=== PATIENT | female | born 1960 | race Caucasian/White ===

== ENCOUNTER 2019-05-19 17:35 | Emergency (ER) | payer BC ==
[~2019-05-19] VITALS: Ht 165.1 cm; Wt 94.4 kg
[2019-05-19 17:35] VITALS: BP 170/94
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
[2019-05-19 18:26] LABS: BARBITURATES NEG (NEG); BENZODIAZEPINES NEG (NEG); CANNABINOIDS NEG (NEG); COCAINE NEG (NEG); METHADONE NEG (NEG); OPIATES NEG (NEG); PHENCYCLIDINE NEG (NEG)
[2019-05-19 18:27] LABS: BACTERIA,URINE FEW /HPF (0-FEW); BILIRUBIN,URINE NEG (NEG); CLARITY,URINE HAZY; COLOR,URINE YELLOW; GLUCOSE,URINE 500 mg/dL (NEG); NITRITE,URINE NEG (NEG); RBC,URINE OCC /HPF (0-2); SQUAMOUS EPITHELIAL CELL,UR OCC /LPF; UROBILINOGEN,URINE 0.2 mg/dL (0.2 mg/dL); WBC,URINE OCC /HPF (0-4)
[2019-05-19 18:28] LABS: AMPHETAMINE/METHAMPHETAMINE NEG (NEG)
[2019-05-19] MEDS ORDERED: ALPR0.2565 PO (18:37)
== END 2019-05-19 18:50 | disposition home or self-care (01) ==
LOC: ER 17:35
DX: F41.9 Anxiety disorder, unspecified (principal); E11.9 Type 2 diabetes mellitus without complications; F44.9 Dissociative and conversion disorder, unspecified; I10 Essential (primary) hypertension; Z88.2 Allergy status to sulfonamides; Z88.1 Allergy status to other antibiotic agents
CPT/HCPCS: 36415; 80307; 81001; 87086; 99283